=== PATIENT | female | born 1960 | race African-American/Black ===

== ENCOUNTER 2019-03-03 12:21 | Inpatient (IN) ==
[2019-03-03] MEDS ORDERED: TUSSIONEX PENNKINETIC SUSP PO PRN (14:54)
[2019-03-03] MEDS ORDERED: NS 1000 ML 1,000 ML IV SCH (15:00)
[2019-03-03] MEDS ORDERED: LEVAQUIN PREMIX IV 750 MG 750 MG/150 ML BAG IV SCH (15:00)
[2019-03-03 15:34] LABS: EOSINOPHILS # (AUTO) 0.1 x10^3/uL (0.0-0.2); EOSINOPHILS % (AUTO) 1.1 % (0.9-2.9); HEMATOCRIT 41.1 % (36.0-47.0); LYMPHOCYTES % (AUTO) 39.7 % (21.0-51.0); MEAN CORPUSCULAR HEMOGLOBIN 31.9 pg (27.0-34.0); MEAN CORPUSCULAR HGB CONC 34.2 g/dL (33.0-35.0); MEAN CORPUSCULAR VOLUME 93.4 fL (80.0-100.0); MEAN PLATELET VOLUME 9.5 fL (7.4-11.0); MONOCYTES # (AUTO) 0.6 x10^3/uL (0.3-0.8); MONOCYTES % (AUTO) 12.5 % (0.0-13.0); NEUTROPHILS # (AUTO) 2.3 x10^3/uL (2.2-4.8); NEUTROPHILS % (AUTO) 45.7 % (42.0-75.0); PLATELET COUNT 209 X10^3/uL (150.0-450.0); RED CELL DISTRIBUTION WIDTH 13.8 % (11.6-16.5)
[2019-03-03 15:36] LABS: ALANINE AMINOTRANSFERASE 19 Units/L (12-78); ALBUMIN 3.4 g/dL (3.4-5.0); ALKALINE PHOSPHATASE 68 Units/L (46-116); ASPARTATE AMINO TRANSFERASE 16 Units/L (15-37); BLOOD UREA NITROGEN 15 mg/dL (7-18); CALCIUM 8.5 mg/dL (8.5-10.1); CARBON DIOXIDE 28.6 mmol/L (21-32); CHLORIDE 109 mmol/L (98-107); CREATININE 0.88 mg/dL (0.55-1.02); SODIUM 147 mmol/L (136-145); TOTAL PROTEIN 7.5 g/dL (6.4-8.2); eGFR NON BLACK RACES > 60 (>60)
[2019-03-03] MEDS ORDERED: LEVAQUIN PREMIX IV 750 MG 750 MG/150 ML BAG IV ONE (15:37)
[2019-03-03] MEDS ORDERED: LASIX ONE (15:37)
[2019-03-03] MEDS ORDERED: NS 1000 ML 1,000 ML ONE (15:37)
[2019-03-03 15:40] LABS: BILIRUBIN,URINE NEGATIVE (NEGATIVE); BLOOD/HEMOGLOBIN,URINE 3+ (NEGATIVE); GLUCOSE, URINE NEGATIVE (NEGATIVE); KETONES,URINE NEGATIVE (NEGATIVE); LEUKOCYTE ESTERASE ,URINE 2+ (NEGATIVE); NITRITES,URINE POSITIVE (NEGATIVE); PROTEIN,URINE 3+ (NEGATIVE); UROBILINOGEN,URINE NORMAL (NORMAL)
[2019-03-03] MEDS: LASIX IVP SCH ×2 (15:40→20:42)
[2019-03-03 15:41] LABS: APPEARANCE,URINE CLOUDY (CLEAR); COLOR,URINE YELLOW (YELLOW)
[2019-03-03 15:46] LABS: BACTERIA,URINE 3+ /HPF (NEGATIVE); SQUAMOUS EPITHELIAL CELL,UR FEW /HPF (NEGATIVE)
[2019-03-03] MEDS ORDERED: NS 100 ML IV 100 ML ONE (16:05)
[2019-03-03] MEDS ORDERED: POTASSIUM CHL 60 MEQ/NS 0.45% 500 ML IV PRN (16:29)
[2019-03-03] MEDS ORDERED: POTASSIUM CHLORIDE LIQ 20 MEQ UDC PO PRN (16:29)
[2019-03-03] MEDS ORDERED: POTASSIUM CHL 40 MEQ/NS 0.45% 500 ML IV PRN (16:29)
[2019-03-03] MEDS ORDERED: K-RIDER 10 MEQ/NS 100 ML 10 MEQ/100 ML BAG IV PRN (16:29)
[2019-03-03] MEDS ORDERED: KLOR-CON PO PRN (16:29)
[2019-03-03] MEDS ORDERED: MICRO K EXTEN CAP 10 MEQ PO PRN (16:29)
[2019-03-03] MEDS: DUONEB 0.5 MG/3 MG NEB SCH ×2 (16:38→17:02)
[2019-03-03] MEDS ORDERED: SALINE 3% 15 ML NEB TX NEB ONE (16:46)
--- NOTE | 2019-03-03 17:03 | CT ---
CT chest with contrast Indication: Heart failure, left-sided pneumonia Technique: Helical CT images of the chest were obtained with IV contrast. Reformatted images in the coronal and sagittal planes were also generated for review. Comparison: No chest radiograph or additional prior exams are available for comparison. Findings: The heart is enlarged without significant pericardial effusion. There is mild calcification of the thoracic aorta and proximal great vessels without aneurysm. No central or large segmental pulmonary arterial filling defects are identified. Major central airways are patent. There is no mediastinal or hilar lymphadenopathy. There is a moderate right and trace left-sided pleural effusion and moderate compressive atelectasis of the right lower lobe. There is a background of mild paraseptal emphysema. The remainder of the aerated lungs are otherwise clear without focal consolidation. No pneumothorax identified. There is a 1.5 cm left adrenal nodule which demonstrates an average attenuation of 8 HU, compatible with an adenoma. Limited images through the upper abdomen otherwise show no acute abnormality. Previous right mastectomy noted. No acute osseous abnormality is identified. Impression: Cardiomegaly with moderate right and trace left-sided pleural effusions. Although no significant pulmonary edema is present, correlate clinically for CHF. Moderate associated compressive atelectasis of the right lower lobe. Otherwise, no convincing evidence of pneumonia. Mild emphysema. Reported By:
[2019-03-03] MEDS: ZOSYN VIAL 4.5 GRAMS 4.5 G in NS 100 ML IV + SPIKE MINIBAG* 100 ML IV SCH ×2 (17:20→22:45)
[2019-03-03 17:44] VITALS: BMI 29.0
[2019-03-03] MEDS: ROBITUSSIN DM PO SCH ×2 (18:17→20:43)
[2019-03-03] MEDS ORDERED: NS 1/2 1000 ML IV 1,000 ML IV SCH (19:00)
[2019-03-03] MEDS: COREG TAB 12.5 MG PO SCH (20:41)
[2019-03-03] MEDS: DIOVAN TAB 160 MG PO SCH (20:41)
[2019-03-03] MEDS: MARINOL PO SCH (20:42)
[2019-03-03] MEDS: CAPECITABINE PO SCH (20:48)
[2019-03-03] MEDS: NORCO 10/325 TAB PO PRN (20:51)
[2019-03-03] MEDS: K-DUR TAB 20 MEQ PO PRN (21:48)
[2019-03-04] MEDS: DUONEB 0.5 MG/3 MG NEB SCH ×5 (00:30→18:45)
[2019-03-04] MEDS: K-DUR TAB 20 MEQ PO PRN ×2 (02:31→17:29)
[2019-03-04 05:38] LABS: BASOPHILS % (AUTO) 1.1 % (0.2-1.0); EOSINOPHILS # (AUTO) 0.1 x10^3/uL (0.0-0.2); EOSINOPHILS % (AUTO) 1.7 % (0.9-2.9); HEMATOCRIT 37.1 % (36.0-47.0); HEMOGLOBIN 12.9 g/dL (12.0-16.0); LYMPHOCYTES # (AUTO) 1.8 X10^3/uL (1.3-2.9); LYMPHOCYTES % (AUTO) 42.9 % (21.0-51.0); MEAN CORPUSCULAR HEMOGLOBIN 32.2 pg (27.0-34.0); MEAN CORPUSCULAR HGB CONC 34.6 g/dL (33.0-35.0); MEAN CORPUSCULAR VOLUME 92.8 fL (80.0-100.0); MEAN PLATELET VOLUME 9.9 fL (7.4-11.0); MONOCYTES # (AUTO) 0.6 x10^3/uL (0.3-0.8); MONOCYTES % (AUTO) 14.3 % (0.0-13.0); NEUTROPHILS # (AUTO) 1.7 x10^3/uL (2.2-4.8); PLATELET COUNT 187 X10^3/uL (150.0-450.0); RED CELL DISTRIBUTION WIDTH 14.1 % (11.6-16.5); WHITE BLOOD COUNT 4.2 X10^3/uL (3.6-10.0)
[2019-03-04 06:04] LABS: ALANINE AMINOTRANSFERASE 15 Units/L (12-78); ALBUMIN 2.9 g/dL (3.4-5.0); ALKALINE PHOSPHATASE 60 Units/L (46-116); ASPARTATE AMINO TRANSFERASE 16 Units/L (15-37); BLOOD UREA NITROGEN 15 mg/dL (7-18); CALCIUM 7.8 mg/dL (8.5-10.1); CARBON DIOXIDE 26.8 mmol/L (21-32); CHLORIDE 109 mmol/L (98-107); COR CA(FOR HYPOALB) 8.7 mg/dL (8.5-10.1); COR NA(FOR HYPERGLY) 146 mmol/L (136-145); CREATININE 0.92 mg/dL (0.55-1.02); SODIUM 145 mmol/L (136-145); TOTAL PROTEIN 6.6 g/dL (6.4-8.2); eGFR NON BLACK RACES > 60 (>60)
--- NOTE | 2019-03-04 06:06 | RAD ---
HISTORY: Congestive heart failure Study: Chest PA and lateral Comparison: CT chest 03/03/2019 Findings: The heart is enlarged. Mild pulmonary venous congestion is present. No interstitial edema, alveolar edema, alveolar infiltrates are identified. There is a right pleural effusion present obscuring the lung markings in a portion of the right lower lobe. The remainder of the lung reyna are clear. The bony thorax is unremarkable. IMPRESSION: Continued mild cardiomegaly with pulmonary venous congestion but no edema Right pleural effusion obscuring the lung markings in the right lung base. Reported By:
[2019-03-04] MEDS: XARELTO PO SCH (09:43)
[2019-03-04] MEDS: MICRO K EXTEN CAP 10 MEQ PO SCH ×2 (09:45→10:09)
[2019-03-04] MEDS: ROBITUSSIN DM PO SCH ×4 (09:45→20:39)
[2019-03-04] MEDS: COREG TAB 12.5 MG PO SCH ×2 (09:45→20:30)
[2019-03-04] MEDS: MARINOL PO SCH ×2 (09:47→20:40)
[2019-03-04] MEDS: LASIX PO SCH (09:48)
[2019-03-04] MEDS: LASIX IVP SCH ×2 (09:48→20:30)
[2019-03-04] MEDS: CAPECITABINE PO SCH ×2 (09:52→20:38)
[2019-03-04] MEDS: CYANOCOBALAMIN 50 MCG PO SCH (09:52)
[2019-03-04] MEDS ORDERED: COLACE CAP 100 MG PO PRN (10:12)
[2019-03-04] MEDS ORDERED: MILK OF MAGNESIA PO PRN (10:12)
[2019-03-04] MEDS: ZOSYN VIAL 4.5 GRAMS 4.5 G in NS 100 ML IV + SPIKE MINIBAG* 100 ML IV SCH ×2 (14:00→21:15)
[2019-03-04] MEDS ORDERED: NS 1000 ML 1,000 ML ONE (14:41)
[2019-03-04] MEDS ORDERED: BUTT CREAM (COMPOUND) TOP PRN (20:11)
[2019-03-04] MEDS: DIOVAN TAB 160 MG PO SCH (20:30)
[2019-03-05] MEDS: DUONEB 0.5 MG/3 MG NEB SCH ×4 (00:56→16:38)
[2019-03-05] MEDS: ZOSYN VIAL 4.5 GRAMS 4.5 G in NS 100 ML IV + SPIKE MINIBAG* 100 ML IV SCH ×3 (05:07→21:33)
[2019-03-05 05:50] LABS: BASOPHILS # (AUTO) 0.1 X10^3/uL (0.0-0.1); BASOPHILS % (AUTO) 1.3 % (0.2-1.0); EOSINOPHILS # (AUTO) 0.2 x10^3/uL (0.0-0.2); EOSINOPHILS % (AUTO) 3.8 % (0.9-2.9); HEMATOCRIT 39.4 % (36.0-47.0); HEMOGLOBIN 13.6 g/dL (12.0-16.0); LYMPHOCYTES # (AUTO) 1.7 X10^3/uL (1.3-2.9); LYMPHOCYTES % (AUTO) 40.2 % (21.0-51.0); MEAN CORPUSCULAR HGB CONC 34.4 g/dL (33.0-35.0); MEAN CORPUSCULAR VOLUME 93.1 fL (80.0-100.0); MEAN PLATELET VOLUME 9.2 fL (7.4-11.0); MONOCYTES # (AUTO) 0.5 x10^3/uL (0.3-0.8); MONOCYTES % (AUTO) 12.4 % (0.0-13.0); NEUTROPHILS # (AUTO) 1.8 x10^3/uL (2.2-4.8); NEUTROPHILS % (AUTO) 42.3 % (42.0-75.0); PLATELET COUNT 188 X10^3/uL (150.0-450.0); RED BLOOD COUNT 4.23 X10^6/uL (3.5-5.4); RED CELL DISTRIBUTION WIDTH 13.9 % (11.6-16.5); WHITE BLOOD COUNT 4.2 X10^3/uL (3.6-10.0)
[2019-03-05 06:15] LABS: ALANINE AMINOTRANSFERASE 14 Units/L (12-78); ALKALINE PHOSPHATASE 59 Units/L (46-116); ASPARTATE AMINO TRANSFERASE 17 Units/L (15-37); BLOOD UREA NITROGEN 18 mg/dL (7-18); CALCIUM 8.5 mg/dL (8.5-10.1); CARBON DIOXIDE 26.5 mmol/L (21-32); CHLORIDE 108 mmol/L (98-107); COR CA(FOR HYPOALB) 9.3 mg/dL (8.5-10.1); CREATININE 0.95 mg/dL (0.55-1.02); SODIUM 143 mmol/L (136-145); TOTAL PROTEIN 6.7 g/dL (6.4-8.2); eGFR NON BLACK RACES > 60 (>60)
[2019-03-05] MEDS: COREG TAB 12.5 MG PO SCH ×2 (08:38→20:38)
[2019-03-05] MEDS: XARELTO PO SCH (08:38)
[2019-03-05] MEDS: MARINOL PO SCH (08:39)
[2019-03-05] MEDS: CAPECITABINE PO SCH ×2 (08:39→20:38)
[2019-03-05] MEDS: ROBITUSSIN DM PO SCH ×4 (08:39→20:38)
[2019-03-05] MEDS: CYANOCOBALAMIN 50 MCG PO SCH (08:40)
[2019-03-05] MEDS: LASIX IVP SCH ×2 (08:40→20:39)
[2019-03-05] MEDS: LASIX PO SCH ×2 (08:40→08:57)
[2019-03-05] MEDS: MICRO K EXTEN CAP 10 MEQ PO SCH ×2 (08:41→08:47)
[2019-03-05] MEDS: K-DUR TAB 20 MEQ PO PRN (08:47)
[2019-03-05] MEDS: DIOVAN TAB 160 MG PO SCH (20:38)
[2019-03-06] MEDS: DUONEB 0.5 MG/3 MG NEB SCH ×5 (00:07→17:24)
[2019-03-06] MEDS: ZOSYN VIAL 4.5 GRAMS 4.5 G in NS 100 ML IV + SPIKE MINIBAG* 100 ML IV SCH ×3 (05:07→22:10)
[2019-03-06 05:14] LABS: BASOPHILS # (AUTO) 0.1 X10^3/uL (0.0-0.1); EOSINOPHILS # (AUTO) 0.1 x10^3/uL (0.0-0.2); EOSINOPHILS % (AUTO) 1.4 % (0.9-2.9); HEMATOCRIT 42.4 % (36.0-47.0); HEMOGLOBIN 14.4 g/dL (12.0-16.0); LYMPHOCYTES % (AUTO) 42.4 % (21.0-51.0); MEAN CORPUSCULAR HEMOGLOBIN 31.7 pg (27.0-34.0); MEAN CORPUSCULAR VOLUME 93.3 fL (80.0-100.0); MEAN PLATELET VOLUME 9.8 fL (7.4-11.0); MONOCYTES # (AUTO) 0.5 x10^3/uL (0.3-0.8); MONOCYTES % (AUTO) 10.9 % (0.0-13.0); NEUTROPHILS % (AUTO) 43.3 % (42.0-75.0); PLATELET COUNT 204 X10^3/uL (150.0-450.0); RED BLOOD COUNT 4.54 X10^6/uL (3.5-5.4); RED CELL DISTRIBUTION WIDTH 14.3 % (11.6-16.5); WHITE BLOOD COUNT 4.6 X10^3/uL (3.6-10.0)
--- NOTE | 2019-03-06 05:27 | RAD ---
Examination: AP chest History: Pulmonary congestion Comparison 03/04/2019 Findings: Heart size is stable. A moderately large right pleural effusion is present. There is no evidence for discrete pulmonary mass, pneumothorax or pneumothorax. Impression: Persistent right pleural effusion. There is little or no change since 03/04/2019. Reported By:
[2019-03-06 05:29] LABS: ALANINE AMINOTRANSFERASE 14 Units/L (12-78); ALBUMIN 3.2 g/dL (3.4-5.0); ALKALINE PHOSPHATASE 62 Units/L (46-116); ASPARTATE AMINO TRANSFERASE 18 Units/L (15-37); BLOOD UREA NITROGEN 14 mg/dL (7-18); CALCIUM 8.6 mg/dL (8.5-10.1); CARBON DIOXIDE 29.3 mmol/L (21-32); CHLORIDE 107 mmol/L (98-107); COR CA(FOR HYPOALB) 9.2 mg/dL (8.5-10.1); CREATININE 0.91 mg/dL (0.55-1.02); SODIUM 143 mmol/L (136-145); TOTAL PROTEIN 7.1 g/dL (6.4-8.2); eGFR NON BLACK RACES > 60 (>60)
[2019-03-06] MEDS: LASIX PO SCH (09:04)
[2019-03-06] MEDS: MICRO K EXTEN CAP 10 MEQ PO SCH (09:04)
[2019-03-06] MEDS: XARELTO PO SCH (09:04)
[2019-03-06] MEDS: COREG TAB 12.5 MG PO SCH ×2 (09:04→20:38)
[2019-03-06] MEDS: ROBITUSSIN DM PO SCH ×4 (09:05→20:38)
[2019-03-06] MEDS: LASIX IVP SCH ×2 (09:05→09:10)
[2019-03-06] MEDS: CYANOCOBALAMIN 50 MCG PO SCH (09:05)
[2019-03-06] MEDS: K-DUR TAB 20 MEQ PO PRN (15:25)
[2019-03-06] MEDS: DIOVAN TAB 160 MG PO SCH (20:38)
--- NOTE | 2019-03-06 21:34 | PCM.PROG ---
Progress Note - Progress Note for Day of Date of Exam: 03/04/19 - Subjective Subjective: IS BEING TREATED FOR CONGESTIVE HEART FAILURE AND PNEUMONIA. TODAY, SHE IS ALERT AND ORIENTED, LYING IN BED ON MORNING ROUNDS. SHE CONTINUES WITH COMPLAINTS OF COUGH, SHORTNESS OF BREATH, AND WEAKNESS. ON EXAMINATION, HEART IS REGULAR IN RATE AND RHYTHM. BILATERAL LUNGS ARE NOTED WITH SCATTERED WHEEZING THROUGHOUT. ABDOMEN IS ROUND, SOFT, AND NON-TENDER WITH NORMAL BOWEL SOUNDS NOTED IN ALL QUADRANTS. LOWER EXTREMITIES ARE NOTED WITH TRACE EDEMA. HER VITALS THIS MORNING ARE: 98.5-78-18-96%RA-151/95. LABS WERE OBTAINED. ABNORMAL LAB VALUES INCLUDE THE FOLLOWING: CORRECTED SODIUM 146, CHLORIDE 109, GLUCOSE 127, CALCIUM 7.8, ALBUMIN 2.9. A URINALYSIS WAS OBTAINED AND REVEALED: WBC TNTC, RBC 10-20, BACTERIA 3+, LEUKOCYTES 2+, NITRITES POSITIVE, OCCULT BLOOD 3+. BLOOD AND URINE CULTURES ARE PENDING. A CHEST CT WAS OBTAINED YESTERDAY AND REVEALED: Cardiomegaly with moderate right and trace left-sided pleural effusions. Although no significant pulmonary edema is present, correlate clinically for CHF. Moderate associated compressive atelectasis of the right lower lobe. Otherwise, no convincing evidence of pneumonia. Mild emphysema. WE WILL OBTAIN AN ECHO THIS MORNING. SHE IS CURRENTLY RECEIVING LASIX 20MG PO DAILY, RESPIRATORY TREATMENTS, IV ZOSYN, AND HOME MEDS WERE RESUMED. WE WILL CONTINUE WITH CURRENT PLAN OF CARE TODAY. OTHERWISE, WE WILL FOLLOW UP WITH AM LABS AND CONTINUE TO MONITOR. - Past Medical Family Social History Past Med/Fam/Surg Hx: No changes since H&P Allergies: Allergies No Known Drug Allergies Allergy (Verified 03/03/19 14:53) - Review of Systems ROS: No change since H&P - Vital Signs and I&O's Vital Signs: Temperature 97.3 F Pulse Rate 94 Respiratory Rate 18 Blood Pressure 161/79 O2 Sat by Pulse Oximetry 94 Intake and Output: Intake & Output 03/04/19 03/05/19 03/06/19 03/07/19 11:59 11:59 11:59 11:59 Intake Total 2222 / 2222 1764 / 1764 2137 / 2137 1589 / 1589 Output Total 3450 / 3450 2400 / 2400 Balance -1228 / -1228 -636 / -636 2137 / 2137 1589 / 1589 - Physical Exam Oriented: Normal Eyes: Normal Ear: Normal Nose: Normal Throat: Normal Respiratory: Generalized, Wheezes Cardiovascular: Edema (LOWER EXTREMITIES ). negative: S3, S4, Murmur : Normal Auscultation: Bowel Sounds: Normal Palpation: Normal Tenderness: Normal Skin: Normal Musculoskeletal: Normal Psychiatric: Normal Mood Description: Calm Affect: Normal Speech Pattern: Clear, Appropriate - Laboratory and Diagnostics Result Diagrams: 03/06/19 03:54 03/06/19 17:33 Labs: 03/03/19 15:49 Blood Blood Culture - Preliminary 03/03/19 15:08 Blood Blood Culture - Preliminary 03/03/19 15:10 Urine,Clean Catch Urine Culture - Final Escherichia Coli Laboratory WBC 4.6 X10^3/uL (3.6-10.0) 03/06/19 03:54 RBC 4.54 X10^6/uL (3.5-5.4) 03/06/19 03:54 Hgb 14.4 g/dL (12.0-16.0) 03/06/19 03:54 Hct 42.4 % (36.0-47.0) 03/06/19 03:54 MCV 93.3 fL (80.0-100.0) 03/06/19 03:54 MCH 31.7 pg (27.0-34.0) 03/06/19 03:54 MCHC 34.0 g/dL (33.0-35.0) 03/06/19 03:54 RDW 14.3 % (11.6-16.5) 03/06/19 03:54 Plt Count 204 X10^3/uL (150.0-450.0) 03/06/19 03:54 MPV 9.8 fL (7.4-11.0) 03/06/19 03:54 Neut % (Auto) 43.3 % (42.0-75.0) 03/06/19 03:54 Lymph % (Auto) 42.4 % (21.0-51.0) 03/06/19 03:54 [place] % (Auto) 10.9 % (0.0-13.0) 03/06/19 03:54 Eos % (Auto) 1.4 % (0.9-2.9) 03/06/19 03:54 Baso % (Auto) 2.0 % (0.2-1.0) H 03/06/19 03:54 Neut # (Auto) 2.0 x10^3/uL (2.2-4.8) L 03/06/19 03:54 Lymph # (Auto) 2.0 X10^3/uL (1.3-2.9) 03/06/19 03:54 [place] # (Auto) 0.5 x10^3/uL (0.3-0.8) 03/06/19 03:54 Eos # (Auto) 0.1 x10^3/uL (0.0-0.2) 03/06/19 03:54 Baso # (Auto) 0.1 X10^3/uL (0.0-0.1) 03/06/19 03:54 Absolute Nucleated RBC 0.2 /100WBC 03/06/19 03:54 Sodium 143 mmol/L (136-145) 03/06/19 03:54 Corrected Sodium TNP 03/06/19 03:54 Potassium 3.6 mmol/L (3.5-5.1) 03/06/19 17:33 Chloride 107 mmol/L (98-107) 03/06/19 03:54 Carbon Dioxide 29.3 mmol/L (21-32) 03/06/19 03:54 BUN 14 mg/dL (7-18) 03/06/19 03:54 Creatinine 0.91 mg/dL (0.55-1.02) 03/06/19 03:54 Est GFR (MDRD) Af Amer > 60 (>60) 03/06/19 03:54 Est GFR (MDRD) Non-Af > 60 (>60) 03/06/19 03:54 Glucose 86 mg/dL (65-99) 03/06/19 03:54 Calcium 8.6 mg/dL (8.5-10.1) 03/06/19 03:54 Corrected Calcium 9.2 mg/dL (8.5-10.1) 03/06/19 03:54 Magnesium 1.9 mg/dL (1.7-2.9) 03/05/19 05:14 Total Bilirubin 0.60 mg/dL (0.2-1.0) 03/06/19 03:54 AST 18 Units/L (15-37) 03/06/19 03:54 ALT 14 Units/L (12-78) 03/06/19 03:54 Alkaline Phosphatase 62 Units/L (46-116) 03/06/19 03:54 B-Natriuretic Peptide 418 pg/mL (0-79) H 03/05/19 05:14 Total Protein 7.1 g/dL (6.4-8.2) 03/06/19 03:54 Albumin 3.2 g/dL (3.4-5.0) L 03/06/19 03:54 Globulin 3.9 g/dL (2.5-4.5) 03/06/19 03:54 Albumin/Globulin Ratio 0.8 Ratio (1.1-2.1) L 03/06/19 03:54 Specimen Type Clean catch urine 03/03/19 15:10 Urine Color Yellow (YELLOW) 03/03/19 15:10 Urine Appearance Cloudy (CLEAR) 03/03/19 15:10 Urine pH 6.0 (5.0 - 8.0) 03/03/19 15:10 Ur Specific [place] 1.025 (1.000-1.030) 03/03/19 15:10 Urine Protein 3+ (NEGATIVE) 03/03/19 15:10 Urine Glucose (UA) Negative (NEGATIVE) 03/03/19 15:10 Urine Ketones Negative (NEGATIVE) 03/03/19 15:10 Urine Occult Blood 3+ (NEGATIVE) 03/03/19 15:10 Urine Nitrite Positive (NEGATIVE) 03/03/19 15:10 Urine Bilirubin Negative (NEGATIVE) 03/03/19 15:10 Urine Urobilinogen Normal (NORMAL) 03/03/19 15:10 Ur Leukocyte Esterase 2+ (NEGATIVE) 03/03/19 15:10 Urine RBC 10-20 /HPF (0-3) A 03/03/19 15:10 Urine WBC Tntc /HPF (0-5) A 03/03/19 15:10 Ur Squamous Epith Cells Few /HPF (NEGATIVE) 03/03/19 15:10 Urine Bacteria 3+ /HPF (NEGATIVE) 03/03/19 15:10 Ur Culture Indicated? Yes/culture set up 03/03/19 15:10 - Plan (1) CHF (congestive heart failure) Status: Acute Qualifiers: Heart failure chronicity: acute on chronic Plan: LASIX, RESPIRATORY TX, CONTINUE HOME MEDS, CONTINUE TO MONITOR (2) Pneumonia Status: Acute Qualifiers: Pneumonia type: due to unspecified organism Laterality: right Lung location: lower lobe of lung Qualified Code(s): J18.1 - Lobar pneumonia, unspecified organism Plan: IV ANTIBIOTICS, RESPIRATORY TX, SUPPLEMENTAL OXYGEN, CONTINUE TO MONITOR (3) History of breast cancer Status: Acute Plan: CONTINUE HOME MEDS (4) History of thrombosis Status: Acute Plan: CONTINUE HOME MEDS
[2019-03-07] MEDS: DUONEB 0.5 MG/3 MG NEB SCH ×4 (00:10→17:11)
[2019-03-07] MEDS: K-DUR TAB 20 MEQ PO PRN (01:09)
[2019-03-07 05:02] LABS: BASOPHILS # (AUTO) 0.1 X10^3/uL (0.0-0.1); BASOPHILS % (AUTO) 1.5 % (0.2-1.0); EOSINOPHILS # (AUTO) 0.1 x10^3/uL (0.0-0.2); EOSINOPHILS % (AUTO) 2.9 % (0.9-2.9); HEMATOCRIT 39.4 % (36.0-47.0); HEMOGLOBIN 13.6 g/dL (12.0-16.0); LYMPHOCYTES # (AUTO) 2.1 X10^3/uL (1.3-2.9); LYMPHOCYTES % (AUTO) 42.7 % (21.0-51.0); MEAN CORPUSCULAR HEMOGLOBIN 32.3 pg (27.0-34.0); MEAN CORPUSCULAR HGB CONC 34.6 g/dL (33.0-35.0); MEAN CORPUSCULAR VOLUME 93.5 fL (80.0-100.0); MEAN PLATELET VOLUME 9.6 fL (7.4-11.0); MONOCYTES # (AUTO) 0.7 x10^3/uL (0.3-0.8); MONOCYTES % (AUTO) 13.8 % (0.0-13.0); NEUTROPHILS # (AUTO) 1.9 x10^3/uL (2.2-4.8); NEUTROPHILS % (AUTO) 39.1 % (42.0-75.0); PLATELET COUNT 192 X10^3/uL (150.0-450.0); RED BLOOD COUNT 4.22 X10^6/uL (3.5-5.4); RED CELL DISTRIBUTION WIDTH 13.7 % (11.6-16.5); WHITE BLOOD COUNT 4.9 X10^3/uL (3.6-10.0)
[2019-03-07 05:07] LABS: ALANINE AMINOTRANSFERASE 13 Units/L (12-78); ALKALINE PHOSPHATASE 58 Units/L (46-116); ASPARTATE AMINO TRANSFERASE 15 Units/L (15-37); BLOOD UREA NITROGEN 16 mg/dL (7-18); CALCIUM 8.7 mg/dL (8.5-10.1); CARBON DIOXIDE 26.5 mmol/L (21-32); CHLORIDE 108 mmol/L (98-107); COR CA(FOR HYPOALB) 9.5 mg/dL (8.5-10.1); CREATININE 0.88 mg/dL (0.55-1.02); SODIUM 141 mmol/L (136-145); TOTAL PROTEIN 6.7 g/dL (6.4-8.2); eGFR NON BLACK RACES > 60 (>60)
--- NOTE | 2019-03-07 05:50 | RAD ---
Chest radiograph, single view. History: Shortness of breath Comparison: 03/06/2019. Findings: There is cardiomegaly. Slight interval improvement in right basilar pleural effusion. No evidence of consolidation. No evidence of pneumothorax. Conclusion: Slightly improved right pleural effusion. Reported By:
[2019-03-07] MEDS: ZOSYN VIAL 4.5 GRAMS 4.5 G in NS 100 ML IV + SPIKE MINIBAG* 100 ML IV SCH ×3 (05:53→21:13)
[2019-03-07] MEDS: XARELTO PO SCH (09:42)
[2019-03-07] MEDS: MICRO K EXTEN CAP 10 MEQ PO SCH (09:42)
[2019-03-07] MEDS: LASIX PO SCH (09:42)
[2019-03-07] MEDS: ROBITUSSIN DM PO SCH ×4 (09:43→21:13)
[2019-03-07] MEDS: CYANOCOBALAMIN 50 MCG PO SCH (09:43)
[2019-03-07] MEDS: COREG TAB 12.5 MG PO SCH ×2 (09:43→21:12)
[2019-03-07] MEDS: NORCO 10/325 TAB PO PRN (19:05)
--- NOTE | 2019-03-07 20:16 | PCM.PROG ---
Progress Note - Progress Note for Day of Date of Exam: 03/05/19 - Subjective Subjective: IS BEING TREATED FOR CONGESTIVE HEART FAILURE AND PNEUMONIA. TODAY, SHE IS ALERT AND ORIENTED, LYING IN BED ON MORNING ROUNDS. SHE CONTINUES WITH COMPLAINTS OF COUGH, SHORTNESS OF BREATH, AND WEAKNESS. ON EXAMINATION, HEART IS REGULAR IN RATE AND RHYTHM. BILATERAL LUNGS ARE NOTED WITH SCATTERED WHEEZING THROUGHOUT. ABDOMEN IS ROUND, SOFT, AND NON-TENDER WITH NORMAL BOWEL SOUNDS NOTED IN ALL QUADRANTS. LOWER EXTREMITIES CONTINUE WITH TRACE EDEMA. HER VITALS THIS MORNING ARE: 97.9-96-18-93%NC-178/79. LABS WERE OBTAINED. ABNORMAL LAB VALUES INCLUDE THE FOLLOWING: CHLORIDE 108, BNP 418, ALBUMIN 3.0. BLOOD AND URINE CULTURES ARE PENDING. URINE CULTURE REVEALS GROWTH OF GRAM NEGATIVE RODS. AN ECHO WAS OBTAINED YESTERDAY AND REVEALED AN EJECTION FRACTION OF 57%. SHE IS CURRENTLY RECEIVING LASIX 20MG PO DAILY, RESPIRATORY TREATMENTS, IV ZOSYN, AND HOME MEDS WERE RESUMED. WE WILL CONTINUE WITH CURRENT PLAN OF CARE TODAY. OTHERWISE, WE WILL FOLLOW UP WITH AM LABS AND CONTINUE TO MONITOR. - Past Medical Family Social History Past Med/Fam/Surg Hx: No changes since H&P Allergies: Allergies No Known Drug Allergies Allergy (Verified 03/03/19 14:53) - Review of Systems ROS: No change since H&P - Vital Signs and I&O's Vital Signs: Temperature 97.8 F Pulse Rate 78 Respiratory Rate 22 Blood Pressure 163/83 O2 Sat by Pulse Oximetry 96 Intake and Output: Intake & Output 03/05/19 03/06/19 03/07/19 03/08/19 11:59 11:59 11:59 11:59 Intake Total 1764 / 1764 2136 / 2137 3007 / 3007 795 / 795 Output Total 2400 / 2400 Balance -636 / -636 213 / 2137 3007 / 3007 795 / 795 - Physical Exam Oriented: Normal Eyes: Normal Ear: Normal Nose: Normal Throat: Normal Respiratory: Generalized, Wheezes Cardiovascular: Edema (LOWER EXTREMITIES ). negative: S3, S4, Murmur : Normal Auscultation: Bowel Sounds: Normal Tenderness: Normal Skin: Normal Musculoskeletal: Normal Psychiatric: Normal Mood Description: Calm Affect: Normal Speech Pattern: Clear, Appropriate - Laboratory and Diagnostics Result Diagrams: 03/07/19 03:53 03/07/19 03:53 Labs: 03/03/19 15:49 Blood Blood Culture - Preliminary 03/03/19 15:08 Blood Blood Culture - Preliminary 03/03/19 15:10 Urine,Clean Catch Urine Culture - Final Escherichia Coli Laboratory WBC 4.9 X10^3/uL (3.6-10.0) 03/07/19 03:53 RBC 4.22 X10^6/uL (3.5-5.4) 03/07/19 03:53 Hgb 13.6 g/dL (12.0-16.0) 03/07/19 03:53 Hct 39.4 % (36.0-47.0) 03/07/19 03:53 MCV 93.5 fL (80.0-100.0) 03/07/19 03:53 MCH 32.3 pg (27.0-34.0) 03/07/19 03:53 MCHC 34.6 g/dL (33.0-35.0) 03/07/19 03:53 RDW 13.7 % (11.6-16.5) 03/07/19 03:53 Plt Count 192 X10^3/uL (150.0-450.0) 03/07/19 03:53 MPV 9.6 fL (7.4-11.0) 03/07/19 03:53 Neut % (Auto) 39.1 % (42.0-75.0) L 03/07/19 03:53 Lymph % (Auto) 42.7 % (21.0-51.0) 03/07/19 03:53 [place] % (Auto) 13.8 % (0.0-13.0) H 03/07/19 03:53 Eos % (Auto) 2.9 % (0.9-2.9) 03/07/19 03:53 Baso % (Auto) 1.5 % (0.2-1.0) H 03/07/19 03:53 Neut # (Auto) 1.9 x10^3/uL (2.2-4.8) L 03/07/19 03:53 Lymph # (Auto) 2.1 X10^3/uL (1.3-2.9) 03/07/19 03:53 [place] # (Auto) 0.7 x10^3/uL (0.3-0.8) 03/07/19 03:53 Eos # (Auto) 0.1 x10^3/uL (0.0-0.2) 03/07/19 03:53 Baso # (Auto) 0.1 X10^3/uL (0.0-0.1) 03/07/19 03:53 Absolute Nucleated RBC 0.1 /100WBC 03/07/19 03:53 Sodium 141 mmol/L (136-145) 03/07/19 03:53 Corrected Sodium TNP 03/07/19 03:53 Potassium 4.2 mmol/L (3.5-5.1) 03/07/19 03:53 Chloride 108 mmol/L (98-107) H 03/07/19 03:53 Carbon Dioxide 26.5 mmol/L (21-32) 03/07/19 03:53 BUN 16 mg/dL (7-18) 03/07/19 03:53 Creatinine 0.88 mg/dL (0.55-1.02) 03/07/19 03:53 Est GFR (MDRD) Af Amer > 60 (>60) 03/07/19 03:53 Est GFR (MDRD) Non-Af > 60 (>60) 03/07/19 03:53 Glucose 98 mg/dL (65-99) 03/07/19 03:53 Calcium 8.7 mg/dL (8.5-10.1) 03/07/19 03:53 Corrected Calcium 9.5 mg/dL (8.5-10.1) 03/07/19 03:53 Magnesium 1.9 mg/dL (1.7-2.9) 03/05/19 05:14 Total Bilirubin 0.50 mg/dL (0.2-1.0) 03/07/19 03:53 AST 15 Units/L (15-37) 03/07/19 03:53 ALT 13 Units/L (12-78) 03/07/19 03:53 Alkaline Phosphatase 58 Units/L (46-116) 03/07/19 03:53 B-Natriuretic Peptide 418 pg/mL (0-79) H 03/05/19 05:14 Total Protein 6.7 g/dL (6.4-8.2) 03/07/19 03:53 Albumin 3.0 g/dL (3.4-5.0) L 03/07/19 03:53 Globulin 3.7 g/dL (2.5-4.5) 03/07/19 03:53 Albumin/Globulin Ratio 0.8 Ratio (1.1-2.1) L 03/07/19 03:53 Specimen Type Clean catch urine 03/03/19 15:10 Urine Color Yellow (YELLOW) 03/03/19 15:10 Urine Appearance Cloudy (CLEAR) 03/03/19 15:10 Urine pH 6.0 (5.0 - 8.0) 03/03/19 15:10 Ur Specific [place] 1.025 (1.000-1.030) 03/03/19 15:10 Urine Protein 3+ (NEGATIVE) 03/03/19 15:10 Urine Glucose (UA) Negative (NEGATIVE) 03/03/19 15:10 Urine Ketones Negative (NEGATIVE) 03/03/19 15:10 Urine Occult Blood 3+ (NEGATIVE) 03/03/19 15:10 Urine Nitrite Positive (NEGATIVE) 03/03/19 15:10 Urine Bilirubin Negative (NEGATIVE) 03/03/19 15:10 Urine Urobilinogen Normal (NORMAL) 03/03/19 15:10 Ur Leukocyte Esterase 2+ (NEGATIVE) 03/03/19 15:10 Urine RBC 10-20 /HPF (0-3) A 03/03/19 15:10 Urine WBC Tntc /HPF (0-5) A 03/03/19 15:10 Ur Squamous Epith Cells Few /HPF (NEGATIVE) 03/03/19 15:10 Urine Bacteria 3+ /HPF (NEGATIVE) 03/03/19 15:10 Ur Culture Indicated? Yes/culture set up 03/03/19 15:10 - Plan (1) CHF (congestive heart failure) Status: Acute Qualifiers: Heart failure chronicity: acute on chronic Plan: LASIX, RESPIRATORY TX, CONTINUE HOME MEDS, CONTINUE TO MONITOR (2) Pneumonia Status: Acute Qualifiers: Pneumonia type: due to unspecified organism Laterality: right Lung location: lower lobe of lung Qualified Code(s): J18.1 - Lobar pneumonia, unspecified organism Plan: IV ANTIBIOTICS, RESPIRATORY TX, SUPPLEMENTAL OXYGEN, CONTINUE TO MONITOR (3) History of breast cancer Status: Acute Plan: CONTINUE HOME MEDS (4) History of thrombosis Status: Acute Plan: CONTINUE HOME MEDS
[2019-03-07] MEDS: DIOVAN TAB 160 MG PO SCH (21:12)
[2019-03-08] MEDS: DUONEB 0.5 MG/3 MG NEB SCH ×2 (01:10→12:11)
[2019-03-08 04:52] LABS: BASOPHILS # (AUTO) 0.1 X10^3/uL (0.0-0.1); BASOPHILS % (AUTO) 1.2 % (0.2-1.0); EOSINOPHILS # (AUTO) 0.1 x10^3/uL (0.0-0.2); EOSINOPHILS % (AUTO) 2.7 % (0.9-2.9); HEMATOCRIT 39.2 % (36.0-47.0); HEMOGLOBIN 13.5 g/dL (12.0-16.0); LYMPHOCYTES # (AUTO) 2.2 X10^3/uL (1.3-2.9); LYMPHOCYTES % (AUTO) 45.8 % (21.0-51.0); MEAN CORPUSCULAR HEMOGLOBIN 31.8 pg (27.0-34.0); MEAN CORPUSCULAR HGB CONC 34.4 g/dL (33.0-35.0); MEAN CORPUSCULAR VOLUME 92.5 fL (80.0-100.0); MEAN PLATELET VOLUME 9.1 fL (7.4-11.0); MONOCYTES # (AUTO) 0.6 x10^3/uL (0.3-0.8); MONOCYTES % (AUTO) 12.5 % (0.0-13.0); NEUTROPHILS # (AUTO) 1.8 x10^3/uL (2.2-4.8); NEUTROPHILS % (AUTO) 37.8 % (42.0-75.0); PLATELET COUNT 188 X10^3/uL (150.0-450.0); RED BLOOD COUNT 4.24 X10^6/uL (3.5-5.4); RED CELL DISTRIBUTION WIDTH 13.9 % (11.6-16.5); WHITE BLOOD COUNT 4.7 X10^3/uL (3.6-10.0)
[2019-03-08 05:12] LABS: ALANINE AMINOTRANSFERASE 17 Units/L (12-78); ALBUMIN 2.9 g/dL (3.4-5.0); ALKALINE PHOSPHATASE 61 Units/L (46-116); ASPARTATE AMINO TRANSFERASE 16 Units/L (15-37); BLOOD UREA NITROGEN 18 mg/dL (7-18); CALCIUM 8.6 mg/dL (8.5-10.1); CHLORIDE 107 mmol/L (98-107); COR CA(FOR HYPOALB) 9.5 mg/dL (8.5-10.1); CREATININE 0.78 mg/dL (0.55-1.02); SODIUM 142 mmol/L (136-145); TOTAL PROTEIN 6.9 g/dL (6.4-8.2); eGFR NON BLACK RACES > 60 (>60)
[2019-03-08] MEDS: ZOSYN VIAL 4.5 GRAMS 4.5 G in NS 100 ML IV + SPIKE MINIBAG* 100 ML IV SCH (05:45)
--- NOTE | 2019-03-08 06:12 | RAD ---
HISTORY: Shortness of breath Study: Chest AP portable Comparison: 03/07/2019 Findings: The heart remains enlarged. No definite congestive heart failure is noted. Right pleural effusion is unchanged. No acute alveolar infiltrates are identified. The bony thorax is unremarkable. IMPRESSION: Continued cardiomegaly without congestive heart failure No definite infiltrates No change right pleural effusion Reported By:
[2019-03-08] MEDS: ROBITUSSIN DM PO SCH (08:58)
[2019-03-08] MEDS: XARELTO PO SCH (08:59)
[2019-03-08] MEDS: COREG TAB 12.5 MG PO SCH (08:59)
[2019-03-08] MEDS: CYANOCOBALAMIN 50 MCG PO SCH (08:59)
[2019-03-08] MEDS: LASIX PO SCH (08:59)
[2019-03-08] MEDS: MICRO K EXTEN CAP 10 MEQ PO SCH (08:59)
[2019-03-08 10:14] VITALS: BP 174/92
[2019-03-08] MEDS: NORCO 10/325 TAB PO PRN (11:33)
== END 2019-03-08 13:05 | disposition home or self-care (01) | DRG 291 ==
LOC: ICU
PROVIDERS: ADMIT Internal Medicine; ATTEND Internal Medicine
DX: Z86.718 Personal history of other venous thrombosis and embolism; Z85.3 Personal history of malignant neoplasm of breast; R53.1 Weakness; J18.8 Other pneumonia, unspecified organism; R06.02 Shortness of breath; M77.32 Calcaneal spur, left foot; I11.0 Hypertensive heart disease with heart failure; B96.29 Other Escherichia coli [E. coli] as the cause of diseases classified elsewhere; J90 Pleural effusion, not elsewhere classified; C50.919 Malignant neoplasm of unspecified site of unspecified female breast; I50.9 Heart failure, unspecified
CPT/HCPCS: 36415; 71010; 71020; 71045; 71046; 71260; 80053; 81001; 83735; 83880; 84132; 85025; 87040; 87086; 87088; 87186; 93306; 94640; A4222; G0378; J1940; J1956; J2543; J7030; J7050; J7620